=== PATIENT | male | born 1935 | race Caucasian/White ===

== ENCOUNTER 2017-02-23 15:51 | Emergency (ER) | payer MEDICARE, OTHER ==
[~2017-02-23 15:51] MED LIST: ACET500CAP PO; ACTOS30 PO; AMB10 PO; ASAB PO; ATEN50 PO; B 100; BENEFIBER PO; BENTYL10 PO; C5 PO; CENTRUM SILVER 50+ PO; CIP5 PO; COMBIVENT INH; COREG12 PO; EYE DROP1 OPH; FISH OIL1200 MG PO; FISH-EPA1000 MG PO; FLAG500TAB PO; GLUCOPHAGE1000 MG PO; GLUCPH PO; NASAL SPRAY RX NAS; OCUVITE PO; PRIN10 PO; PRIN5 PO; T PO; THERGRANM PO; VITAMIN B-100; XARELTO20 MG PO; ZOCOR40 PO; [UNRECOGNIZED DRUG - OTHER] PO
[2017-06-21] MEDS ORDERED: PRADAXA150 MG PO (22:58)
[2017-06-21] MEDS ORDERED: PRINZIDE1 TA1 PO (22:59)
[2017-06-21] MEDS ORDERED: AMARYL2 PO (22:59)
[2017-06-21] MEDS ORDERED: COREG12 PO (23:00)
[2017-06-21] MEDS ORDERED: SYMBICORT 160/41 INH INH (23:01)
[2017-06-21] MEDS ORDERED: ZOCOR20 PO (23:01)
[2017-06-21] MEDS ORDERED: BENTYL10 PO (23:01)
[2017-06-21] MEDS ORDERED: MULTIVITAMI1 PO (23:02)
[2017-06-21] MEDS ORDERED: IMOD PO (23:02)
[2017-06-24] MEDS ORDERED: HALF81 PO (09:20)
== END 2017-02-23 19:35 | disposition home or self-care (01) ==
LOC: ER 15:51
PROC: 0HQFXZZ Repair Right Hand Skin, External Approach (ICD-10-PCS; principal; 2017-02-23)
DX: S61.011A Laceration without foreign body of right thumb without damage to nail, initial encounter (principal); I10 Essential (primary) hypertension; J44.9 Chronic obstructive pulmonary disease, unspecified; Z95.1 Presence of aortocoronary bypass graft; K58.9 Irritable bowel syndrome, unspecified; E11.9 Type 2 diabetes mellitus without complications; Z87.891 Personal history of nicotine dependence; Z88.0 Allergy status to penicillin; Z88.6 Allergy status to analgesic agent; Z79.899 Other long term (current) drug therapy; Y28.8XXA Contact with other sharp object, undetermined intent, initial encounter
CPT/HCPCS: 73130-RT; 99282